=== PATIENT | female | born 1975 | race Caucasian/White ===

== ENCOUNTER 2018-07-28 10:41 | Emergency (ER) | payer BC ==
[~2018-07-28] VITALS: Ht 160 cm; Wt 61.4 kg
[~2018-07-28 10:41] MED LIST: DIAZ5TAB PO; IBUP-1984 PO; ONDA4TAB12 PO; ONDA4TAB6 PO
[2018-07-28 10:55] VITALS: BP 133/99
== END 2018-07-28 11:32 | disposition home or self-care (01) ==
LOC: ER 10:42
DX: Z02.89 Encounter for other administrative examinations (principal); G43.909 Migraine, unspecified, not intractable, without status migrainosus; Z87.891 Personal history of nicotine dependence; Z56.0 Unemployment, unspecified; Z87.11 Personal history of peptic ulcer disease; Z98.890 Other specified postprocedural states
CPT/HCPCS: 99283

== ENCOUNTER 2018-09-07 10:15 | Outpatient (CLI) | payer BC ==
[~2018-09-07 10:15] MED LIST changes: +HYDR-3965 PO
[2018-09-07 10:17] VITALS: BP 122/89
== END 2018-09-07 10:39 | disposition home or self-care (01) ==
LOC: ORTHO 10:15
PROVIDERS: ATTEND Nurse Practitioner Family
DX: S92.324G Nondisplaced fracture of second metatarsal bone, right foot, subsequent encounter for fracture with delayed healing (principal); Z71.6 Tobacco abuse counseling; Z72.0 Tobacco use; W17.89XD Other fall from one level to another, subsequent encounter; Y92.018 Other place in single-family (private) house as the place of occurrence of the external cause
CPT/HCPCS: 73630; 99213

== ENCOUNTER 2018-09-29 10:13 | Outpatient (CLI) | payer BC ==
[~2018-09-29 10:13] MED LIST changes: -HYDR-3965 PO
[2018-09-29 10:15] VITALS: BP 125/81
== END 2018-09-29 10:39 | disposition home or self-care (01) ==
LOC: ORTHO 10:13
PROVIDERS: ATTEND Nurse Practitioner Family
DX: S92.321G Displaced fracture of second metatarsal bone, right foot, subsequent encounter for fracture with delayed healing (principal); F17.200 Nicotine dependence, unspecified, uncomplicated; F32.9 Major depressive disorder, single episode, unspecified; Z79.899 Other long term (current) drug therapy; Z91.018 Allergy to other foods; Z56.0 Unemployment, unspecified; W10.8XXD Fall (on) (from) other stairs and steps, subsequent encounter
CPT/HCPCS: 73630; 99213

== ENCOUNTER 2018-10-21 15:41 | Outpatient (CLI) | payer BC ==
[2018-10-21 15:45] VITALS: BP 146/101
== END 2018-10-21 16:13 | disposition home or self-care (01) ==
LOC: ORTHO 15:41
PROVIDERS: ATTEND Nurse Practitioner Family
DX: S92.321G Displaced fracture of second metatarsal bone, right foot, subsequent encounter for fracture with delayed healing (principal); S82.61XD Displaced fracture of lateral malleolus of right fibula, subsequent encounter for closed fracture with routine healing; F17.200 Nicotine dependence, unspecified, uncomplicated; Z56.0 Unemployment, unspecified; Z91.010 Allergy to peanuts; X58.XXXD Exposure to other specified factors, subsequent encounter
CPT/HCPCS: 73630; 99213

== ENCOUNTER 2018-10-31 23:29 | Emergency (ER) | payer BC ==
[~2018-10-31] VITALS: Ht 160 cm; Wt 63.5 kg
[2018-11-01] MEDS ORDERED: normal saline 1000ML IV soln IVB ONE (01:00)
[2018-11-01] MEDS ORDERED: ondansetron/PF 4mg/2ml inj IV ONE (01:00)
[2018-11-01] MEDS: morphine 4 MG/ML inj SYRINge IV PRN ×2 (01:21→03:22)
[2018-11-01 01:41] LABS: BASOPHILS # (AUTO) 0.1 X10'3 (0-0.2); BASOPHILS % (AUTO) 0.7 % (0-1); EOSINOPHILS # (AUTO) 0.1 X10'3 (0-0.9); EOSINOPHILS % (AUTO) 1.8 % (0-6); HEMATOCRIT 39.6 % (35.0-45.0); HEMOGLOBIN 13.6 g/dl (12.0-16.0); LYMPHOCYTES # (AUTO) 1.9 X10'3 (1.1-4.8); LYMPHOCYTES % (AUTO) 26.5 % (21-51); MEAN CORPUSCULAR HEMOGLOBIN 34.1 PG (27.0-31.0); MEAN CORPUSCULAR HGB CONC 34.4 % (33.0-36.5); MEAN CORPUSCULAR VOLUME 99.1 FL (78-98); MEAN PLATELET VOLUME 7.9 FL (7.4-10.4); MONOCYTES # (AUTO) 0.8 X10'3 (0-0.9); MONOCYTES % (AUTO) 11.4 % (2-12); NEUTROPHILS # (AUTO) 4.4 X10'3 (1.8-7.7); NEUTROPHILS % (AUTO) 59.6 % (42-75); PLATELET COUNT 320 X10'3 (140-440); RED CELL DISTRIBUTION WIDTH 11.8 % (11.5-14.5); WHITE BLOOD COUNT 7.4 X10'3 (4.5-11.0)
[2018-11-01 01:44] LABS: CLARITY,URINE CLEAR (Clear); COLOR,URINE YELLOW (Yellow); GLUCOSE, URINE NEGATIVE (Neg); KETONES,URINE NEGATIVE (Neg); LEUKOCYTE ESTERASE ,URINE NEGATIVE (Neg); NITRITES, URINE NEGATIVE (Neg); OCCULT BLOOD,URINE NEGATIVE (Neg); PH,URINE 6.5 (4.8-8.0); PROTEIN,URINE NEGATIVE (Neg)
[2018-11-01 01:46] LABS: UA COLLECTION TYPE CLN CATCH MIDSTREAM
[2018-11-01 01:52] LABS: ALANINE AMINOTRANSFERASE 21 U/L (12-78); ALBUMIN 3.6 G/DL (3.4-5.0); ALBUMIN/GLOBULIN RATIO 1.2 (1.1-1.5); ALKALINE PHOSPHATASE 68 IU/L (46-116); ANION GAP 12 (8-16); ASPARTATE AMINO TRANSFERASE 12 U/L (10-37); BILIRUBIN,TOTAL 0.3 MG/DL (0.1-1.0); BLOOD UREA NITROGEN 20 MG/DL (7-18); CHLORIDE 102 MMOL/L (99-107); CREATININE 0.87 MG/DL (0.40-0.90); GLUCOSE 104 MG/DL (70-104); LIPASE 202 U/L (73-393); POTASSIUM 4.1 MMOL/L (3.5-5.1); SODIUM 139 MMOL/L (135-145); TOTAL CARBON DIOXIDE 25.4 MMOL/L (24-32); TOTAL PROTEIN 6.7 G/DL (6.4-8.2); eGFR 71 ML/MIN
[2018-11-01] MEDS ORDERED: HYDR-3965 PO (03:00)
[2018-11-01 03:15] VITALS: BP 129/88
== END 2018-11-01 03:33 | disposition home or self-care (01) ==
LOC: ER 23:30
DX: N83.201 Unspecified ovarian cyst, right side (principal); G43.909 Migraine, unspecified, not intractable, without status migrainosus; Z91.018 Allergy to other foods; Z79.899 Other long term (current) drug therapy; Z56.0 Unemployment, unspecified
CPT/HCPCS: 36415; 74176; 76830; 76857; 80053; 81003; 83690; 85025; 96374; 96375; 99284; J2270; J2405; J7030

== ENCOUNTER 2018-11-11 15:45 | Outpatient (CLI) | payer BC ==
[2018-11-11 15:44] VITALS: BP 127/97
[~2018-11-11 15:45] MED LIST changes: +HYDR-3965 PO
== END 2018-11-11 15:46 | disposition home or self-care (01) ==
LOC: ORTHO 15:45
PROVIDERS: ATTEND Nurse Practitioner Family
DX: S92.321G Displaced fracture of second metatarsal bone, right foot, subsequent encounter for fracture with delayed healing (principal); Z56.0 Unemployment, unspecified; Z91.010 Allergy to peanuts; X58.XXXD Exposure to other specified factors, subsequent encounter
CPT/HCPCS: 73630; G0463

== ENCOUNTER → 2018-12-09 | Outpatient (CLI) | payer BC ==
[~2018-12-09] MED LIST changes: -HYDR-3965 PO
[2018-12-09 15:41] VITALS: BP 125/69
== END | disposition home or self-care (01) ==
LOC: ORTHO 15:37
PROVIDERS: ATTEND Nurse Practitioner Family
DX: S92.321D Displaced fracture of second metatarsal bone, right foot, subsequent encounter for fracture with routine healing (principal); F17.200 Nicotine dependence, unspecified, uncomplicated; F32.9 Major depressive disorder, single episode, unspecified; Z56.0 Unemployment, unspecified; Z91.010 Allergy to peanuts; W10.9XXD Fall (on) (from) unspecified stairs and steps, subsequent encounter
CPT/HCPCS: 73630; 99213

== ENCOUNTER 2022-10-21 15:00 | Emergency (ER) | payer BC, OTHER ==
[~2022-10-21] VITALS: Ht 160 cm; Wt 54.5 kg
[2022-10-21 15:48] LABS: BASOPHILS % (AUTO) 0.3 % (0-1); EOSINOPHILS % (AUTO) 0.3 % (0-6); HEMOGLOBIN 12.6 g/dl (12.0-16.0); LYMPHOCYTES # (AUTO) 0.8 X10'3 (1.1-4.8); LYMPHOCYTES % (AUTO) 6.8 % (21-51); MEAN CORPUSCULAR HEMOGLOBIN 31.8 PG (27.0-31.0); MEAN CORPUSCULAR HGB CONC 33.2 g/dL (33.0-36.5); MEAN CORPUSCULAR VOLUME 95.7 FL (78-98); MEAN PLATELET VOLUME 7.7 FL (7.4-10.4); MONOCYTES # (AUTO) 1.1 X10'3 (0-0.9); MONOCYTES % (AUTO) 9.2 % (2-12); NEUTROPHILS # (AUTO) 9.7 X10'3 (1.8-7.7); NEUTROPHILS % (AUTO) 83.4 % (42-75); PLATELET COUNT 321 X10'3 (140-440); RED BLOOD COUNT 3.97 X10'6 (4.20-5.60); WHITE BLOOD COUNT 11.6 X10'3 (4.5-11.0)
[2022-10-21 15:59] LABS: ALANINE AMINOTRANSFERASE 18 U/L (12-78); ALBUMIN 3.4 G/DL (3.4-5.0); ALKALINE PHOSPHATASE 63 IU/L (46-116); ANION GAP 9 (8-16); ASPARTATE AMINO TRANSFERASE 14 U/L (10-37); BILIRUBIN,TOTAL 0.4 MG/DL (0.1-1.0); BLOOD UREA NITROGEN 8 MG/DL (7-18); BUN/CREATININE RATIO 7.6 (6.6-38.0); CALCIUM 8.3 MG/DL (8.5-10.1); CHLORIDE 100 MMOL/L (99-107); CREATININE 1.05 MG/DL (0.40-0.90); GLUCOSE 104 MG/DL (70-104); LIPASE < 50 U/L (73-393); POTASSIUM 3.6 MMOL/L (3.5-5.1); SODIUM 135 MMOL/L (135-145); TOTAL CARBON DIOXIDE 26.2 MMOL/L (24-32); TOTAL PROTEIN 6.9 G/DL (6.4-8.2); eGFR 56 ML/MIN
[2022-10-21] MEDS ORDERED: HYDROcodone/acetaminophen 5mg/325mg tablet PO ONE (17:15)
[2022-10-21 17:38] LABS: CLARITY,URINE SLIGHTLY CLOUDY (Clear); COLOR,URINE YELLOW (Yellow); GLUCOSE, URINE NEGATIVE (Neg); KETONES,URINE NEGATIVE (Neg); LEUKOCYTE ESTERASE ,URINE MODERATE (Neg); NITRITES, URINE NEGATIVE (Neg); OCCULT BLOOD,URINE SMALL (Neg); PROTEIN,URINE TRACE mg/dl (Neg); UA COLLECTION TYPE CLN CATCH MIDSTREAM; UROBILINOGEN,URINE 0.2 E.U/dL (0.2-1.0)
[2022-10-21] MEDS ORDERED: CefTRIAXone 1000mg IM Kit (w/lidocaine diluent) IM ONE (17:45)
[2022-10-21 17:46] LABS: WBC,URINE 50-100 /HPF (0-4)
[2022-10-21] MEDS ORDERED: CEPH250T PO (17:47)
[2022-10-21] MEDS ORDERED: TRAM50TA2 PO (17:47)
[2022-10-21 17:48] LABS: BACTERIA,URINE 2+ /HPF (Neg); RBC,URINE 0-2 /HPF (0-2); SQUAMOUS EPITHELIAL CELL,UR FEW /LPF (FEW); TRANSITIONAL EPI CELLS,URINE FEW /HPF; WBC CLUMPS,URINE FEW /HPF (NEGATIVE); YEAST FEW /HPF (NEGATIVE)
[2022-10-21 17:50] LABS: URINE HCG NEGATIVE (NEG)
[2022-10-21 18:06] VITALS: BP 128/76
== END 2022-10-21 18:07 | disposition home or self-care (01) ==
LOC: ER 15:01
DX: N12 Tubulo-interstitial nephritis, not specified as acute or chronic (principal); G43.909 Migraine, unspecified, not intractable, without status migrainosus; Z98.890 Other specified postprocedural states; Z56.0 Unemployment, unspecified
CPT/HCPCS: 36415; 80053; 81001; 81025; 83690; 85025; 87077; 87088; 87186; 96372; 99283; J0696